=== PATIENT | male | born 1970 | race Caucasian/White ===

== ENCOUNTER → 2016-11-05 | Outpatient (CLI) | payer OTHER ==
[2016-11-05 13:26] LABS: ABSOLUTE EOSINOPHILS # (AUTO) 0.2 10^3/uL (0.0-0.6); ABSOLUTE LYMPHOCYTES (AUTO) 2.6 10^3/uL (0.5-4.7); ABSOLUTE MONOCYTES (AUTO) 0.5 10^3/uL (0.1-1.4); ABSOLUTE NEUT (AUTO) 6.6 10^3/uL (1.7-8.2); BASOPHILS % (AUTO) 0.5 % (0-2); EOSINOPHILS % (AUTO) 2.4 % (0-6); HEMATOCRIT 43.8 % (37.9-51.0); HEMOGLOBIN 15.5 g/dL (13.5-17.0); HGB HCT DIFFERENCE 2.7; LYMPHOCYTES % (AUTO) 25.7 % (13-45); MEAN CORPUSCULAR HEMOGLOBIN 30.8 pg (27.0-33.4); MEAN CORPUSCULAR HGB CONC 35.4 g/dL (32.0-36.0); MEAN CORPUSCULAR VOLUME 87 fl (80-97); MONOCYTES % (AUTO) 5.5 % (3-13); RED BLOOD COUNT 5.03 10^6/uL (4.35-5.55); RED CELL DISTRIBUTION WIDTH 12.7 % (11.5-14.0); SEGMENTED NEUTROPHILS % (AUTO) 65.9 % (42-78)
[2016-11-05 13:46] LABS: ALANINE AMINOTRANSFERASE 46 U/L (21-72); ALBUMIN 4.3 g/dL (3.5-5.0); ALKALINE PHOSPHATASE 98 U/L (38-126); ANION GAP 12 (5-19); ASPARTATE AMINO TRANSFERASE 25 U/L (17-59); BILIRUBIN,TOTAL 0.3 mg/dL (0.2-1.3); BLOOD UREA NITROGEN 22 mg/dL (7-20); CALCIUM 9.5 mg/dL (8.4-10.2); CARBON DIOXIDE 26 mmol/L (22-30); CHLORIDE 104 mmol/L (98-107); CHOLESTEROL 220.71 mg/dL (0-200); CREATININE RESULT 0.96 mg/dL (0.52-1.25); Direct HDL 38 mg/dL (>40); GLUCOSE 97 mg/dL (75-110); POTASSIUM 4.5 mmol/L (3.6-5.0); SODIUM 141.8 mmol/L (137-145); TOTAL PROTEIN 7.3 g/dL (6.3-8.2); TRIGLYCERIDES 360 mg/dL (<150)
[2016-11-05 13:58] LABS: DIRECT LDL 118 mg/dL (<100)
== END ==
LOC: CCC 12:17
DX: I10 Essential (primary) hypertension (principal); E78.2 Mixed hyperlipidemia
CPT/HCPCS: 36415; 80053; 80061; 83036; 84443; 85025

== ENCOUNTER → 2017-02-19 | Outpatient (CLI) | payer OTHER ==
--- NOTE | 2017-02-19 21:16 | EKG REPORT ---
SEVERITY:- NORMAL ECG - SINUS RHYTHM : Confirmed by: Jack Solis 19-Feb-2017 21:15:14
== END ==
LOC: CCC 12:29
DX: I10 Essential (primary) hypertension (principal)
CPT/HCPCS: 93005; 93010

== ENCOUNTER → 2017-07-22 | Outpatient (CLI) | payer OTHER ==
[2017-07-22 12:02] LABS: CHOLESTEROL 192.53 mg/dL (0-200); Direct HDL 39 mg/dL (>40); TRIGLYCERIDES 309 mg/dL (<150)
[2017-07-22 12:14] LABS: DIRECT LDL 78 mg/dL (<100)
[2017-07-22 12:16] LABS: VLDL CHOLESTEROL 61.8 mg/dL (10-31)
== END ==
LOC: CCC 10:30
DX: R73.03 Prediabetes (principal); E78.5 Hyperlipidemia, unspecified
CPT/HCPCS: 36415; 80061; 83036

== ENCOUNTER → 2019-10-14 | Outpatient (CLI) | payer OTHER ==
[2019-10-14 11:24] LABS: ABSOLUTE EOSINOPHILS # (AUTO) 0.6 10^3/uL (0.0-0.6); ABSOLUTE LYMPHOCYTES (AUTO) 2.8 10^3/uL (0.5-4.7); ABSOLUTE MONOCYTES (AUTO) 0.6 10^3/uL (0.1-1.4); ABSOLUTE NEUT (AUTO) 4.4 10^3/uL (1.7-8.2); BASOPHILS % (AUTO) 0.4 % (0-2); HEMATOCRIT 44.3 % (37.9-51.0); HEMOGLOBIN 15.5 g/dL (13.5-17.0); LYMPHOCYTES % (AUTO) 33.5 % (13-45); MEAN CORPUSCULAR HEMOGLOBIN 30.6 pg (27.0-33.4); MEAN CORPUSCULAR VOLUME 87 fl (80-97); MONOCYTES % (AUTO) 6.9 % (3-13); PLATELET COUNT 216 10^3/uL (150-450); RED BLOOD COUNT 5.07 10^6/uL (4.35-5.55); RED CELL DISTRIBUTION WIDTH 12.9 % (11.5-14.0); SEGMENTED NEUTROPHILS % (AUTO) 52.2 % (42-78); TOTAL CELLS COUNTED % (AUTO) 100 %; WHITE BLOOD COUNT 8.4 10^3/uL (4.0-10.5)
[2019-10-14 11:50] LABS: ALBUMIN 5.1 g/dL (3.5-5.0); ALKALINE PHOSPHATASE 88 U/L (38-126); AMYLASE 114 U/L (30-110); ASPARTATE AMINO TRANSFERASE 22 U/L (17-59); BILIRUBIN,DIRECT 0.1 mg/dL (0.0-0.4); BILIRUBIN,TOTAL 0.5 mg/dL (0.2-1.3)
[2019-10-14 12:01] LABS: FREE T4 (FREE THYROXINE) 1.09 ng/dL (0.78-2.19)
[2019-10-14 12:15] LABS: THYROID STIMULATING HORMONE 3.66 uIU/mL (0.47-4.68)
== END ==
LOC: CCC 10:29
DX: K52.9 Noninfective gastroenteritis and colitis, unspecified (principal)
CPT/HCPCS: 36415; 80076; 82150; 84439; 84443; 85025

== ENCOUNTER → 2019-11-09 | Outpatient (CLI) | payer OTHER ==
--- NOTE | 2019-11-09 21:27 | EKG REPORT ---
SEVERITY:- NORMAL ECG - SINUS RHYTHM : Confirmed by: Kath Avila MD 09-Nov-2019 21:27:18
== END ==
LOC: CCC 15:47
DX: R42 Dizziness and giddiness (principal)
CPT/HCPCS: 93005; 93010

== ENCOUNTER 2019-12-15 22:04 | Emergency (ER) | payer BC, OTHER ==
[2019-12-15] MEDS ORDERED: ONDANSETRON 4 MG TAB.RAPDIS PO ONE (23:06)
--- NOTE | 2019-12-15 23:09 | ER Document Report ---
ED Medical Screen (RME) - General Chief Complaint: Near Syncope Stated Complaint: POSSIBLE SYNCOPE/HEAD PAIN/VOMITING Time Seen by Provider: 12/15/19 23:01 Primary Care Provider: MANNY VORA [Primary Care Provider] - Follow up as needed Notes: Patient is a 49-year-old male who presents emergency department with vomiting and an almost syncopal episode. Patient states that he felt dizzy today and nearly "passed out." He also had some vomiting. He has had this multiple times before. Patient states that it was just like every other time. He has seen [facility], but he did not receive any answers from them. Denies any abdominal pain. Exam: Soft, nontender abdomen. I have greeted and performed a rapid initial assessment of this patient. A comprehensive ED assessment and evaluation of the patient, analysis of test results and completion of medical decision making process will be conducted by an additional ED providers. TRAVEL OUTSIDE OF THE [place] IN LAST 30 DAYS: No Physical Exam - Vital signs Vitals: Temp Pulse Resp BP Pulse Ox 98.0 F 108 H 18 150/98 H 100 12/15/19 22:17 12/15/19 22:17 12/15/19 22:17 12/15/19 22:17 12/15/19 22:17 Course - Vital Signs Vital signs: Temp Pulse Resp BP Pulse Ox 98.0 F 108 H 18 150/98 H 100 12/15/19 22:17 12/15/19 22:17 12/15/19 22:17 12/15/19 22:17 12/15/19 22:17 Doctor's Discharge - Discharge Referrals: MANNY VORA [Primary Care Provider] - Follow up as needed
[2019-12-16 01:10] LABS: ABSOLUTE EOSINOPHILS # (AUTO) 0.1 10^3/uL (0.0-0.6); ABSOLUTE LYMPHOCYTES (AUTO) 0.9 10^3/uL (0.5-4.7); ABSOLUTE MONOCYTES (AUTO) 0.9 10^3/uL (0.1-1.4); ABSOLUTE NEUT (AUTO) 12.6 10^3/uL (1.7-8.2); BASOPHILS % (AUTO) 0.2 % (0-2); EOSINOPHILS % (AUTO) 0.6 % (0-6); HEMATOCRIT 42.3 % (37.9-51.0); HEMOGLOBIN 14.6 g/dL (13.5-17.0); LYMPHOCYTES % (AUTO) 6.2 % (13-45); MEAN CORPUSCULAR HEMOGLOBIN 30.7 pg (27.0-33.4); MEAN CORPUSCULAR HGB CONC 34.6 g/dL (32.0-36.0); MEAN CORPUSCULAR VOLUME 89 fl (80-97); MONOCYTES % (AUTO) 6.2 % (3-13); PLATELET COUNT 219 10^3/uL (150-450); RED BLOOD COUNT 4.78 10^6/uL (4.35-5.55); RED CELL DISTRIBUTION WIDTH 13.5 % (11.5-14.0); SEGMENTED NEUTROPHILS % (AUTO) 86.8 % (42-78); TOTAL CELLS COUNTED % (AUTO) 100 %; WHITE BLOOD COUNT 14.5 10^3/uL (4.0-10.5)
[2019-12-16 01:27] LABS: ALBUMIN 4.8 g/dL (3.5-5.0); ALKALINE PHOSPHATASE 110 U/L (38-126); ANION GAP 10 (5-19); ASPARTATE AMINO TRANSFERASE 29 U/L (17-59); BILIRUBIN,TOTAL 0.4 mg/dL (0.2-1.3); BLOOD UREA NITROGEN 20 mg/dL (7-20); CALCIUM 9.3 mg/dL (8.4-10.2); CARBON DIOXIDE 25 mmol/L (22-30); CHLORIDE 101 mmol/L (98-107); GLUCOSE 127 mg/dL (75-110); POTASSIUM 4.5 mmol/L (3.6-5.0); TOTAL PROTEIN 7.5 g/dL (6.3-8.2)
[2019-12-16 01:29] LABS: A TYPE INFLUENZA AG NEGATIVE (NEGATIVE); B INFLUENZA AG NEGATIVE (NEGATIVE)
[2019-12-16 02:35] VITALS: BP 134/82
[2019-12-16] MEDS ORDERED: ACETAMINOPHEN 325 MG TABLET PO ONE (03:54)
[2019-12-16] MEDS ORDERED: DIPHENHYDRAMINE HCL 25 MG CAPSULE PO ONE (03:54)
[2019-12-16] MEDS ORDERED: METOCLOPRAMIDE HCL 10 MG TABLET PO ONE (03:54)
--- NOTE | 2019-12-16 03:55 | ER Document Report ---
ED General - General Chief Complaint: Dizziness Stated Complaint: POSSIBLE SYNCOPE/HEAD PAIN/VOMITING Time Seen by Provider: 12/15/19 23:01 Primary Care Provider: [facility] [NO LOCAL MD] - Follow up as needed Notes: Patient is a 49-year-old male that comes emergency department for chief complaint of an episode that happened earlier where he felt lightheaded, developed a headache, started to get nauseated and light sensitive, and vomited 3 times. He states after this he was brought to the emergency department by his mother. He states his headache is almost completely gone and he feels much better now. He states this is happened several times in the past, he has been evaluated for this previously and had no diagnosis. He is on medications for hypertension. He denies fever, chest pain, palpitations at any point. He denies any other current symptoms other than a vague headache. He denies a bdominal pain. He denies recreational drugs, alcohol, smoking. TRAVEL OUTSIDE OF THE [place] IN LAST 30 DAYS: No - Related Data Allergies/Adverse Reactions: No Known Allergies Allergy (Verified 12/16/19 03:30) Home Medications: lisinopril. rosavastin Past Medical History - General Information source: Patient, Parent - Social History Smoking Status: Never Smoker Frequency of alcohol use: None Drug Abuse: None Lives with: Family Family History: Reviewed & Not Pertinent Patient has suicidal ideation: No Patient has homicidal ideation: No - Past Medical History Cardiac Medical History: Reports: Hx Hypertension - Immunizations Immunizations up to date: Yes Hx Diphtheria, Pertussis, Tetanus Vaccination: Yes Review of Systems - Review of Systems Constitutional: See HPI EENT: No symptoms reported Cardiovascular: See HPI Respiratory: No symptoms reported Gastrointestinal: See HPI Genitourinary: No symptoms reported Male Genitourinary: No symptoms reported Musculoskeletal: No symptoms reported Skin: No symptoms reported Hematologic/Lymphatic: No symptoms reported Neurological/Psychological: See HPI Physical Exam - Vital signs Vitals: Temp Pulse Resp BP Pulse Ox 98.0 F 108 H 18 150/98 H 100 12/15/19 22:17 12/15/19 22:17 12/15/19 22:17 12/15/19 22:17 12/15/19 22:17 - Notes Notes: GENERAL: Alert, interacts well. No acute distress. HEAD: Normocephalic, atraumatic. EYES: Pupils equal, round, and reactive to light. Extraocular movements intact. ENT: Oral mucosa moist, tongue midline. Oropharynx unremarkable. Airway patent. NECK: Full range of motion. Supple. Trachea midline. LUNGS: Clear to auscultation bilaterally, no wheezes, rales, or rhonchi. No respiratory distress. HEART: Regular rate and rhythm. No murmur ABDOMEN: Soft, non-tender. Non-distended. Bowel sounds present in all 4 quadrants. GENITOURINARY: Deferred EXTREMITIES: Moves all 4 extremities spontaneously. No edema, normal radial and dorsalis pedis pulses bilaterally. No cyanosis. BACK: no cervical, thoracic, lumbar midline tenderness. No saddle anesthesia, normal distal neurovascular exam. Moves all extremities in full range of motion. NEUROLOGICAL: Alert and oriented x3. Normal speech. Cranial nerves II through XII grossly intact. PSYCH: Normal affect, normal mood. SKIN: Warm, dry, normal turgor. No rashes or lesions noted. Course - Re-evaluation Re-evalutation: Patient smiling, well-appearing, states he has a very mild headache at this time but has no other complaints. He has not had any chest pain. EKG unremarkable, CBC shows mild leukocytosis which is nonspecific given patient's lack of current symptoms, benign abdomen, clear lungs, unremarkable vital signs. Chemistry unremarkable, influenza negative. I offered to treat the remaining headache and give IV fluids but patient declined. He states he wants something by mouth for the headache, prescription for headaches at home, and he already has a primary care follow-up. He states previously saw the [facility] but he just got insurance and is going to have a primary care appointment over the next week or so. Based on patient having the symptoms previously, based on the fact that his headache essentially resolved on its own, he has a normal neurological exam, and he has good follow-up established patient will be discharged with return precautions. I discussed this in detail. Patient and mother state understanding and agreement. Stable at time of discharge. - Vital Signs Vital signs: Temp Pulse Resp BP Pulse Ox 97.5 F 92 15 134/82 H 100 12/16/19 02:34 12/16/19 03:39 12/16/19 03:39 12/16/19 03:39 12/16/19 03:39 - Laboratory Result Diagrams: 12/16/19 00:40 02/20/20 00:40 Laboratory results interpreted by me: 12/16/19 12/16/19 00:40 00:40 WBC 14.5 H Lymph % (Auto) 6.2 L Absolute Neuts (auto) 12.6 H Seg Neutrophils % 86.8 H Sodium 136.3 L Glucose 127 H Lipase 356.5 H - Diagnostic Test Radiology results interpreted by me: EKG shows sinus rhythm at a rate of 93, QTC of 423, OH interval of 140. Normal axis. No T wave inversions or ST segment changes in consecutive leads. Discharge - Discharge Clinical Impression: Lightheadedness Headache Qualifiers: Headache type: unspecified Headache chronicity pattern: acute headache Intractability: not intractable Qualified Code(s): R51 - Headache Vomiting Qualifiers: Vomiting type: unspecified Vomiting Intractability: non-intractable Nausea presence: with nausea Qualified Code(s): R11.2 - Nausea with vomiting, unspecified Condition: Stable Disposition: HOME, SELF-CARE Additional Instructions: Your evaluation suggest dehydration, rehydrate with plenty of fluids at home. Your pattern for your headache does suggest a migraine, take Reglan if needed for headaches/nausea, you can combine this safely with Tylenol, ibuprofen, and Benadryl if needed. Follow-up with primary care as planned for additional management. Return if you worsen including returned or severe headache, vomiting, passing out, chest pain, fever, or any other concerning or worsening symptoms. Prescriptions: Metoclopramide HCl [Reglan] 5 mg PO ASDIR PRN #30 tablet PRN Reason: Forms: Return to Work [facility]: [facility] [NO LOCAL MD] - Follow up as needed
[2019-12-16] MEDS ORDERED: METOCLOPRAMIDE HCL 10 MG TABLET ONE (04:09)
[2019-12-16] MEDS ORDERED: DIPHENHYDRAMINE HCL 25 MG CAPSULE ONE (04:09)
[2019-12-16] MEDS ORDERED: ACETAMINOPHEN 325 MG TABLET ONE (04:09)
--- NOTE | 2019-12-16 09:10 | EKG REPORT ---
SEVERITY:- BORDERLINE ECG - SINUS RHYTHM PROBABLE LEFT ATRIAL ABNORMALITY : Confirmed by: Jack Solis 16-Dec-2019 09:09:24
== END 2019-12-16 06:00 | disposition home or self-care (01) ==
LOC: ER 22:04
DX: R51 Headache (principal); R42 Dizziness and giddiness; R11.2 Nausea with vomiting, unspecified; H53.149 Visual discomfort, unspecified; D72.829 Elevated white blood cell count, unspecified; I10 Essential (primary) hypertension; Z79.899 Other long term (current) drug therapy
CPT/HCPCS: 36415; 80053; 83690; 85025; 87804; 93005; 93010